=== PATIENT | female | born 1955 | race Caucasian/White ===

== ENCOUNTER 2020-06-13 18:44 | Emergency (ER) | payer MEDICARE, MEDICAID ==
[~2020-06-13] VITALS: Ht 172.7 cm; Wt 81.8 kg
[~2020-06-13 18:44] MED LIST: LOSA100T57 PO; NITR0.4T51 SL; ROSU40TA PO; SPIR25TA PO; TICA90TA PO
[2020-06-13] MEDS ORDERED: nitroGLYCERIN 0.4mg SUBLingual tab SL PRN (18:55)
[2020-06-13 19:08] LABS: BASOPHILS # (AUTO) 0.1 X10'3 (0-0.2); BASOPHILS % (AUTO) 0.8 % (0-1); EOSINOPHILS # (AUTO) 0.2 X10'3 (0-0.9); EOSINOPHILS % (AUTO) 1.5 % (0-6); HEMATOCRIT 44.9 % (35.0-45.0); HEMOGLOBIN 14.8 g/dl (12.0-16.0); LYMPHOCYTES # (AUTO) 3.1 X10'3 (1.1-4.8); LYMPHOCYTES % (AUTO) 21.7 % (21-51); MEAN CORPUSCULAR HEMOGLOBIN 30.3 PG (27.0-31.0); MEAN CORPUSCULAR HGB CONC 32.9 g/dL (33.0-36.5); MEAN CORPUSCULAR VOLUME 92.3 FL (78-98); MEAN PLATELET VOLUME 9.5 FL (7.4-10.4); MONOCYTES % (AUTO) 6.9 % (2-12); NEUTROPHILS % (AUTO) 69.1 % (42-75); PLATELET COUNT 212 X10'3 (140-440); RED BLOOD COUNT 4.87 X10'6 (4.20-5.60); RED CELL DISTRIBUTION WIDTH 14.2 % (11.5-14.5); WHITE BLOOD COUNT 14.5 X10'3 (4.5-11.0)
[2020-06-13 19:19] LABS: D-DIMER 0.23 MG/L FEU (0-0.50)
[2020-06-13 19:22] LABS: ALANINE AMINOTRANSFERASE 19 U/L (12-78); ALBUMIN 3.6 G/DL (3.4-5.0); ALBUMIN/GLOBULIN RATIO 1.1 (1.1-1.5); ALKALINE PHOSPHATASE 88 IU/L (46-116); ANION GAP 9 (8-16); ASPARTATE AMINO TRANSFERASE 18 U/L (10-37); BILIRUBIN,TOTAL 0.3 MG/DL (0.1-1.0); BLOOD UREA NITROGEN 12 MG/DL (7-18); BUN/CREATININE RATIO 13.3 (6.6-38.0); CALCIUM 8.9 MG/DL (8.5-10.1); CHLORIDE 106 MMOL/L (99-107); GLUCOSE 109 MG/DL (70-104); POTASSIUM 3.5 MMOL/L (3.5-5.1); SODIUM 144 MMOL/L (135-145); TOTAL CARBON DIOXIDE 29.5 MMOL/L (24-32); TOTAL PROTEIN 6.8 G/DL (6.4-8.2); eGFR 63 ML/MIN
--- NOTE | 2020-06-13 21:42 | NUR ---
Pt HR 48-50. Denies chest pain or dizziness. Provider notified of bradycardia.
[2020-06-13 23:49] VITALS: BP 154/76
== END 2020-06-13 23:50 | disposition home or self-care (01) ==
LOC: ER 18:45
DX: I20.9 Angina pectoris, unspecified (principal); E78.00 Pure hypercholesterolemia, unspecified; I10 Essential (primary) hypertension; I25.2 Old myocardial infarction; Z79.899 Other long term (current) drug therapy
CPT/HCPCS: 36415; 71045; 80053; 83880; 84484; 85025; 85379; 93005; 99285

== ENCOUNTER 2025-03-15 21:56 | Inpatient (IN) | payer BC, MEDICAID ==
[~2025-03-15] VITALS: Ht 172.7 cm; Wt 69.4 kg
[~2025-03-15 21:56] MED LIST changes: +EZET10TA48 PO; +GABA-530 PO; -LOSA100T57 PO; +LOSA100T58 PO; -NITR0.4T51 SL; -SPIR25TA PO; -TICA90TA PO; +TICA90TA2 PO
--- NOTE | 2025-03-15 22:14 | ELECTROCARDIOGRAPH REPORT ---
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 Alice Leal Measurements Intervals [place] Rate: 44 P: 0 WV: 153 QRS: 49 QRSD: 96 T: 38 QT: 421 QTc: 360 Interpretive Statements Sinus bradycardia Multiple premature complexes, vent & supraven Borderline low voltage, extremity leads Minimal ST depression, lateral leads Baseline wander in lead(s) V6 Electronically Signed On 03-16-2025 4:14:[address] Alice Leal Please click the below link to view image of tracing.
[2025-03-15] MEDS ORDERED: heparin 25,000 UNIT/250ml bag 250 ML IV PRN ×2 (22:15→23:10)
[2025-03-15] MEDS: HEPARIN DRIP INITAL BOLUS --- DO NOT GIVE/ORDER MC ONE (22:15)
--- NOTE | 2025-03-15 22:16 | Physician Documentation ---
History of Present Illness ~ Chief Complaint: Chest Pain Stated Complaint: XFER Time Seen by MD: 22:02 OK to notify your PCP?: Yes Primary Medical Doctor: Yoan Cuenca Source: patient, RN/MD, EMS, RN notes reviewed, EMS notes reviewed, old records Mode of Arrival: EMS Exam Limitations: no limitations HPI This patient is a 69-year-old female transferred from [facility] for chest pain. Patient with history of [place] a sense, and AFib comes in for crushing substernal chest pain that started just prior to arrival to Health system. Patient describes her pain as a crushing were a substernal chest pain. She reports this chest pain rule markedly improved after given nitro at home and by EMS in route. She does report associated shortness of breath with this chest pain, however states that it resolved with the chest pain once nitro was given. 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 Cuenca however she says that he fired her since she missed three previous appointments. Patient denies any associated symptoms at this time. Patient denies any alleviating or exacerbating factors. Medication Reconciliation Allergies: Coded Allergies: No Known Allergies (Unverified , 12/17/14) Scheduled Ezetimibe (Ezetimibe), 1 TAB PO DAILY, (Reported) Losartan Potassium (Losartan Potassium), 100 MG PO DAILY, (Reported) Rosuvastatin Calcium* (Crestor*), 1 TAB PO DAILY, (Reported) Ticagrelor (Brilinta), 1 TAB PO BID, (Reported) Past Medical History Past Medical History: No Pertinent History, Coronary Artery Disease, High Cholesterol, Hypertension, Myocardial Infarction Past Surgical History: noncontributory, other Other Past Surgical History: stents Patient History: (CHF) Congestive heart failure GRANDFATHER OR GRANDMOTHER, Name: maternal gpa, , Age: 58, Cause: CHF (congestive heart failure) ([place]) Myocardial infarction MOTHER, , Age: 60, Cause: AMI (acute myocardial infarction) GRANDFATHER OR GRANDMOTHER, Name: maternal gma, , Age: 52, Cause: AMI (acute myocardial infarction) Smoking Status: Unknown if ever smoked Alcohol Use: None Drug Use: none Lives In: Home Review of Systems All Other Systems at this time: Reviewed and Negative Physical Exam Vital Signs: Temperature: 98.4, Source: Oral, Heart Rate: 52, Respiratory Rate: 11, BP: 172/80, Pulse Oximetry: 98, Weight: 69.400 Physical Exam General: The patient is well developed, well nourished, nontoxic appearing and is in no acute distress. Skin: [place], warm and dry with no rashes. HEENT: Head was normocephalic and atraumatic. Eyes - pupils equal, round, reactive to light and accommodation. Extraocular movements were intact. Conjunctivae were nonicteric. Ears - bilateral tympanic membranes were normal. The mouth and oropharynx were clear with moist mucous membranes. There were no pharyngeal exudates or erythema. Neck: Supple and nontender. There was no jugular venous distention, lymphadenopathy, thyromegaly or masses. Chest: Clear to auscultation bilaterally without wheezes, rales or rhonchi. No accessory muscle use. No dullness to percussion. Heart: Regularly irregular. 4/6 systolic injection murmur. Otherwise S1, S2. Palpation of the chest wall was normal. No rubs or thrills. Abdomen: Soft, nontender and nondistended. Positive bowel sounds. No guarding or rebound. No hepatosplenomegaly or palpable masses. Extremities: No cyanosis, clubbing or edema. The patient moves all extremities. Pulses were equal and symmetric. Neurologic: Cranial nerves II-XII were intact. Sensation was intact to light touch throughout. Motor strength was 5/5 in all four extremities. Deep tendon reflexes were intact in both upper and lower extremities. Psychologic: The patient was oriented to person, place and time. The patient demonstrated appropriate judgement and insight. Progress Results/Orders Reviewed/noted all lab results: Yes Results/Orders Orders - OWEN STARR MD Monitor (03/15/25 22:11) Oxygen (03/15/25 22:11) Saline Lock (03/15/25 22:11) Electrocardiogram (03/15/25 22:11) Page Hospitalist (03/15/25 22:21) Fill Out Med Reconciliation (03/15/25 22:21) Completed Orders - OWEN STARR MD Cbc/Diff (03/15/25 22:11) MG (03/15/25 22:11) Pt Inr (03/15/25 22:11) PTT (03/15/25 22:11) PBNP (03/15/25 22:11) Normal Saline 1000ml (0.9% Sodium Chlori (03/15/25 22:15) Electrocardiogram (03/15/25 22:11) BMP (03/15/25 22:11) Hs Troponin I W Calculations (03/15/25 22:11) Hs Troponin I W Calculations (03/16/25 01:11) Heparin 25,000 Unit/250ml Bag (Heparin 2 (03/15/25 22:15) No Initial Heparin Drip Bolus (No Initia (03/15/25 22:15) Hgb A1c (03/15/25 22:20) PHOS (03/15/25 22:20) Laboratory Tests Test 03/15/25 22:20 White Blood Count 13.1 H Red Blood Count 4.72 Hemoglobin 14.3 Hematocrit 42.3 Mean Corpuscular Volume 89.6 Mean Corpuscular Hemoglobin 30.2 Mean Corpuscular Hemoglobin Concent 33.7 Red Cell Distribution Width 14.3 Platelet Count 190 Mean Platelet Volume 9.0 Neutrophils (%) (Auto) 57.5 Lymphocytes (%) (Auto) 33.0 Monocytes (%) (Auto) 6.2 Eosinophils (%) (Auto) 2.2 Basophils (%) (Auto) 1.1 H Neutrophils # (Auto) 7.6 Lymphocytes # (Auto) 4.3 Monocytes # (Auto) 0.8 Eosinophils # (Auto) 0.3 Basophils # (Auto) 0.1 CBC Comment Prothrombin Time 10.7 INR International Normalized Ratio 1.0 Activated Partial Thromboplast Time 44 H Coagulation Comments Sodium Level 139 Potassium Level 3.4 L Chloride Level 106 Carbon Dioxide Level 27.6 Anion Gap 5 L Blood Urea Nitrogen 9 Creatinine 0.64 Estimated GFR/1.73 m2 > 90 BUN/Creatinine Ratio 14.1 Glucose Level 90 Hemoglobin A1c 5.9 Calcium Level 8.9 Phosphorus Level 3.4 Magnesium Level 2.1 Troponin I High Sensitivity 1297 *H Pro-B-Type Natriuretic Peptide 1189 H Albumin 3.6 Chemistry Comments EKG/XRAY/CT/US/VASC/MRI EKG : Intepreting Monitor?: Yes Additional Comment [facility] [address], [facility] [address] ELECTROCARDIOGRAM Patient: VADIM CABRAL Medical Record: [id number] [facility] : 1955, Age: 69Sex: F Location: [facility] Patient Status: ADM IN Service Date/Time: Ordering Physician: WILMER BLACKWELL Exam Name: EKG/ACS Related Symptoms Technologist: [facility] Test Date: 2025-03-15 Test Time: 23:33:53 Pat Name: VADIM CABRAL Department: [facility]- Patient ID: [facility]-[id number] Room: [place] [address] Gender: F Gas Controller: : 1955 Requested By: WILMER BLACKWELL Order Number: [id number] Reading MD: Dr. Owne Starr Measurements Intervals [place] Rate: 42 P: 47 VT: 157 QRS: 50 QRSD: 95 T: 20 QT: 464 QTc: 388 Interpretive Statements Sinus bradycardia Paired ventricular premature complexes Baseline wander in lead(s) V3 Electronically Signed On 03-16-2025 4:14:[address] Owen Starr Please click the below link to view image of tracing. EKG Date and Time:03/15/252332 Electronically Signed by: OWEN STARR MD Date and Time: 03/16/25 5959 NO PRIMARY CARE PROVIDER~ cc: ~ Departure Referrals: NO PRIMARY CARE PROVIDER (PCP) Signature Scribe Signature: Scribed for Owen Starr MD by Monique Flores . 03/15/25 23:00 Attestation: The note accurately reflects work and decisions made by me.Owen Starr MD 03/15/25 22:16 OWEN STARR MD Mar 15, 2025 22:16
[2025-03-15 22:25] LABS: MEAN PLATELET VOLUME 9.0 FL (7.4-10.4); RED CELL DISTRIBUTION WIDTH 14.3 % (11.5-14.5)
[2025-03-15 22:44] LABS: APTT 44 SECONDS (22-32); INR 1.0 INR
[2025-03-15 22:54] LABS: CREATININE 0.64 MG/DL (0.40-0.90); PRO BRAIN NATRIURETIC PEPTIDE 1189 PG/ML (0-125); TOTAL CARBON DIOXIDE 27.6 MMOL/L (24-32); eCRCL 81 ML/MIN; eGFR > 90 ML/MIN
[2025-03-15] MEDS ORDERED: potassium Cl 20 mEq SR tablet PO PRN (23:10)
[2025-03-15] MEDS ORDERED: magnesium sulf-water 4G/100mL 100 ML IV PRN (23:10)
[2025-03-15] MEDS ORDERED: magnesium hydroxide 30ml (MOM) UD suspension PO PRN (23:10)
[2025-03-15] MEDS ORDERED: mag hydrox/Alum hydrox/simeth 30ml oral suspension PO PRN (23:10)
[2025-03-15] MEDS ORDERED: potassium Cl 40MEQ/1/2NS 520ml 520 ML IV PRN (23:10)
[2025-03-15] MEDS ORDERED: magnesium Cl slow-release 64mg tablet PO PRN (23:10)
[2025-03-15] MEDS ORDERED: ondansetron/PF 4mg/2ml inj IV PRN (23:10)
[2025-03-15] MEDS ORDERED: magnesium sulf-water 2g/50mL 50 ML IV PRN (23:10)
--- NOTE | 2025-03-15 23:35 | ELECTROCARDIOGRAPH REPORT ---
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 Owen Starr Measurements Intervals [place] Rate: 42 P: 47 ID: [id number] QRS: 50 QRSD: 95 T: 20 QT: 464 QTc: 388 Interpretive Statements Sinus bradycardia Paired ventricular premature complexes Baseline wander in lead(s) V3 Electronically Signed On 03-16-2025 4:14:[address] Owen Starr Please click the below link to view image of tracing.
[2025-03-15 23:36] LABS: LEUKOCYTE ESTERASE ,URINE TRACE (Neg); NITRITES, URINE POSITIVE (Neg); OCCULT BLOOD,URINE TRACE-INTACT (Neg)
[2025-03-15 23:37] LABS: UA COLLECTION TYPE NON-SPECIFIED
[2025-03-15 23:41] LABS: SQUAMOUS EPITHELIAL CELL,UR MODERATE /LPF (FEW)
[2025-03-16] VITALS (8 sets, daily range): BP systolic 126–166; BP diastolic 58–82; PULSE 51–68; RESP 12–21; TEMP 97.4–99; O2SAT 95–98
--- NOTE | 2025-03-16 | HISTORY AND PHYSICAL-Residence ---
History & Physical Providers to CC Resident Creating Document: WILMER LARA RES ~ History of Present Illness Primary Medical Doctor: [facility] Reason for Admit\Complaint: Chest pain History of Present Illness 69-year-old female patient with past medical history of CAD status post PTCA x [address] Cuenca and Dr. Curry but was lost to follow up due to personal challenges presented to the ER as a transfer from [facility] for higher level care management of NSTEMI. Over the last two months, she has been suffering with on and off chest pain that occurs at rest. Chest pain is usually 2-3/10 and is self-limited without requiring any medications. Today evening at around 4:00 p.m., the patient developed worsening of chest pain reaching up to 5 to 6/10 on the scale, characteristic of pain was substernal crushing with radiation down to the left armpit. Pain was not associated with dizziness, diaphoresis, shortness of breath, palpitations, presyncopal or syncopal episodes. Pain was not similar to a prior episodes but none of her prior two episodes were similar to each other either. Nitroglycerin administered by EMS on site and at [facility] relieved the pain. 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 However, she is compliant with all of her medications. At [facility], the patient was treated with nitroglycerin and was started on the heparin drip after her 1st troponin was elevated, and was transferred here. During my exam in the ER, she was found to be bradycardic with heart rate dropping down as low as 49 beats per minute. No EKG was presents from [facility] but as per records, heart rate had remained about 50s in the outside facility as well. Patient is asymptomatic even on ambulation. Of note, the patient also reports that she lost about 75 lb since July which she states is secondary to reducing portion sizes. She also reports no appetite and loss of taste. Allergies: Coded Allergies: No Known Allergies (Unverified , 12/17/14) Home Medications Home Medications Active Reported Gabapentin 100 Mg Capsule 1 Cap PO DAILY 30 Days Ezetimibe 10 Mg Tablet 1 Tab PO DAILY Brilinta (Ticagrelor) 90 Mg Tablet 1 Tab PO BID Crestor* (Rosuvastatin Calcium) 40 Mg Tablet 1 Tab PO DAILY Losartan Potassium 100 Mg Tablet 100 Mg PO DAILY Past Medical History Past Medical History Hypertension, hyperlipidemia, CAD status post PTCA x2, chronic atrial fibrillation Past Surgical History Surgical History Comment CAD status post PTCA Hiatal hernia Appendectomy Tonsillectomy Right total hip arthroplasty Family History Family History: (CHF) Congestive heart failure GRANDFATHER OR GRANDMOTHER, Name: maternal gpa, , Age: 58, Cause: CHF (congestive heart failure) ([place]) Myocardial infarction MOTHER, , Age: 60, Cause: AMI (acute myocardial infarction) GRANDFATHER OR GRANDMOTHER, Name: maternal gma, , Age: 52, Cause: AMI (acute myocardial infarction) Past Social History Social History Comment Smokes 5-8 cigarettes per day. Started at the age of 53 Denies any alcohol use. Denies any other illicit drug abuse. Independent. Ambulates without any assistive devices. Lives at home with the . Alcohol Use: None Drug Use: None Lives In: Home ROS ROS As stated above in the HPI, otherwise all systems are reviewed and negative. Exam Vitals: Vital Signs Date Time Temp Pulse Resp B/P (MAP) Pulse Ox O2 Delivery O2 Flow Rate FiO2 03/15/25 23:34 50 16 143/96 (112) 98 0 03/15/25 22:05 98.4 General: General: Awake and Alert, no acute distress. HEENT: Conjunctiva pink, Sclera clear, Mucus Membranes moist. Resp: Unlabored. Lungs clear to auscultation bilaterally. Heart: Regular Rate and rhythm, normal S1 and S2, pansystolic pulmonic murmur grade 3/5 Abdomen: Soft and non tender no organomegaly Extremities: No cyanosis,clubbing or edema. GROUP PRODUCT MANAGER: Oriented x4. No motor or sensory deficits noted. No cranial nerve deficits. Skin: Warm and Dry. Diagnostic Data Last Recorded Lab Results: 03/16/25 0320 03/16/25 0320 Diagnostic Data: Laboratory Tests Test 03/15/25 22:20 Prothrombin Time 10.7 SECONDS (9.0-12.0) INR International Normalized Ratio 1.0 INR Activated Partial Thromboplast Time 44 SECONDS (22-32) H Coagulation Comments Counseling Services Smoking & Tobacco Cessation: 3-10 Minutes Advance Care Planning Advanced Care plannin - 30 Minutes Additional Plan NSTEMI: Prior CAD status post PTCA Hemodynamically stable Troponins uptrending EKG: Irregularly irregular, indiscernible P waves, occasional PAC's and PVCs, sinus bradycardic. No significant ST or T-wave changes notable One dose aspirin. Home medication of statin taken. PRN nitroglycerin. Continue heparin drip Beta blockers contraindicated at this time Restart home medication of Brilinta after cardiology evaluation and if no procedural evaluation planned Follow echocardiogram for wall motion abnormalities Consult cardiology in a.m. Place on bus monitor; close monitoring for hemodynamic stability Asymptomatic bradycardia: EKG difficult to interpret but reveals irregular R-R intervals Continous telemetry reveals sinus bradycardia with occassional PAC's and PVC's Consulted Dr. Digna Cuenca; on-call flash welder Reviewed medications, no metoprolol received. Place on telemetry; we will closely monitor overnight Place pacer pads If patient becomes hemodynamically unstable, we will administer atropine Hypertension: Blood pressure at [facility]: 210/93. Likely anxiety induced Blood pressure well-controlled now of the nitro. Currently ranging between 150- 160 SBP Close monitoring, goal <140/80 Do not give beta blockers/CCB's to control blood pressure We will control blood pressure with nitro/hydralazine/Isaiah or arbs Restart home medications of losartan after reconciliation Uncomplicated UTI: Mild leukocytosis IV Rocephin- day one Follow up procalcitonin and blood cultures Chronic Atrial fibrillation: Currently bradycardic; underlying rhythm AFib Avoid beta blockers/CCB's CHADS-VASc score: 3; no home anticoagulation Currently anticoagulated with heparin drip Would require DOAC when heparin is stopped Hyperlipidemia: Follow lipid panel Continue home medication of ezetimibe after reconciliation Significant weight loss: Lost 75 lb over the last seven months Current smoker but less than 15 pack years Suspect eating disorder as a possible etiology as well Outpatient evaluation Lines: PIV Code status: Full code DVT prophylaxis: Heparin drip Diet: JAMIE Lara PGY3, Internal medicine resident Date of Service: Mar 16, 2025 Billing Provider: ERNESTINA SOL MD Common Visit Codes: [id number] INP/OBS CARE (HIGH) Assessment/Plan Assessment Evaluated the patient with the help of residents. Discussed the case with them. Reviewed notes by Dr. Lara and agree with his assessments and plans. I also reviewed the records myself. This included labs, radiology, and notes from other providers. Will continue th e present treatment plans. WILMER LARA, RES Mar 16, 2025 00:00 ERNESTINA SOL MD Mar 16, 2025 06:07
[2025-03-16] MEDS ORDERED: heparin 25,000 UNIT/250ml bag 250 ML IV PRN ×3 (00:10→12:30)
[2025-03-16] MEDS: normal saline 1000ml 1,000 ML IV ONE (00:21)
[2025-03-16] MEDS: heparin 25,000 UNIT/250ml bag 250 ML IV PRN (00:35)
[2025-03-16] MEDS: potassium Cl 20 mEq SR tablet PO PRN (01:35)
[2025-03-16 01:38] LABS: PHOSPHORUS 3.4 MG/DL (2.3-4.5)
[2025-03-16 03:39] LABS: MEAN PLATELET VOLUME 9.3 FL (7.4-10.4); RED CELL DISTRIBUTION WIDTH 14.2 % (11.5-14.5)
[2025-03-16 03:57] LABS: CHOL/HDL RATIO 2.9 (0.00-4.99); CREATININE 0.52 MG/DL (0.40-0.90); LDL CHOLESTEROL 71 MG/DL (50-100); TOTAL CARBON DIOXIDE 28.3 MMOL/L (24-32); eCRCL 100 ML/MIN; eGFR > 90 ML/MIN
[2025-03-16] MEDS: heparin 10,000 units/1 ML INJ IV PRN (04:39)
--- NOTE | 2025-03-16 05:24 | ELECTROCARDIOGRAPH REPORT ---
[facility] Test Date: 2025-03-16 Test Time: 05:20:40 Pat Name: VADIM CABRAL Department: 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 LOTUS Wan Measurements Intervals [place] Rate: 68 P: 0 VA: 0 QRS: 49 QRSD: 98 T: 21 QT: 495 QTc: 527 Interpretive Statements Sinus bradycardia PVCs, nonspecific ST-T changes Electronically Signed On 03-16-2025 9:37:[address] LOTUS Wan Please click the below link to view image of tracing.
[2025-03-16] MEDS ORDERED: K and/or MAG REPLACEMENT MC SCH (08:00)
[2025-03-16] MEDS: docusate sod 100mg capsule PO SCH (08:00)
[2025-03-16] MEDS: CefTRIAXone/D5W-Rocephin 1gm 50 ML IV SCH (09:29)
--- NOTE | 2025-03-16 09:35 | PROGRESS NOTE ---
Daily Progress Note Providers to CC ~ no new complaint today, resting comfortably in the bed Central Line/PICC still needed: No Cutler-Non Protocol Cutler Indications Met/Not Met: F/C Indications Not Met Antibiotic Timeout Antibiotic Ordered?: Yes MRSA Education MRSA Education Provided to pt: Yes Subjective As above Objective Vital Signs Date Time Temp Pulse Resp B/P (MAP) Pulse Ox O2 Delivery O2 Flow Rate FiO2 03/16/25 06:00 50 03/16/25 02:00 98.5 19 163/82 (109) 03/16/25 02:00 97 Room Air 0.0 Vital signs, stable ,afebrile. Pulse Oximetry reflects adequate oxygenation. General: well developed, well nourished. Awake , alert, and oriented x4, resting comfortably in the bed, in no acute distress . Skin: Warm, dry, no pallor, no rash or petechiae. HEENT: Atraumatic, normocephalic, EOMI, anicteric sclera B; pink conjunctiva; PERRLA, normal oropharynx, moist oral and nasal mucosa. Tympanic membrane , nose , throat clear. Neck: Trachea midline. Supple, full range of motion, no JVD, bruit , hepatojugular reflex , lymphadenopathy or masses, or other lesions Cardiac: Regular rhythm, regular rate no murmurs, rubs, or gallops. Normal S1 and S2, no S3 noticed. PMI is normal. Respiratory: Equal breath sounds bilaterally, no tachypnea; lungs clear to auscultation bilaterally, no wheezing ,rub or rales, or crackles. Chest wall is symmetric and without deformity. No signs of trauma. Chest wall is nontender. No signs of respiratory distress. Resonance is normal upon percussion bilaterally. Gastrointestinal: Abdomen symmetric, non-distended, soft, non-tender, normal bowel sounds x4 quadrant, normoactive, no hepatosplenomegaly , no masses , no bruit, no flank pain bilaterally. No voluntary guarding, rebound, or rigidity. No tenderness to percussion. No pulsatile masses. Equal femoral pulses. No Oneill's sign or McBurney point tenderness. Back; no CVA tenderness bilaterally, no deformities. Neck and back are without deformity as well. No tenderness noted on palpation of the spinous processes. Spinous processes are midline. Cervical, thoracic, and lumbar paraspinal muscles are not tender and are without spasm. Musculoskeletal: Extremities, normal range of motion, non-tender, muscle strength 5/5 x 4. Negative Homans signs bilaterally on lower extremity. Distal pulses full symmetrical, no clubbing, cyanosis , edema. Neurological: Speech is clear, alert, and oriented x 4. No motor or sensory deficit, deep tendon reflexes normal, cerebellar intact. Cranial nerves II-XII intact. Psych: Alert and or appropriate, normal affect. Vascular: Good distal pulses, which are equal x4; capillary refill less than 2 seconds. Lymphatic, no lymphadenopathy. Result Diagram: 03/16/25 0320 03/16/25 0320 Coagulation Studies Laboratory Tests Test 03/15/25 22:20 03/16/25 03:20 Prothrombin Time 10.7 SECONDS (9.0-12.0) INR International Normalized Ratio 1.0 INR Activated Partial Thromboplast Time 44 SECONDS (22-32) H APTT (Heparin Protocol) 29 SECONDS (45-60) L Coagulation Comments Problem\Assessment\Plan Problems/Diagnosis: (1) NSTEMI (non-ST elevated myocardial infarction) Assessment/ Plan NSTEMI: Prior CAD status post PTCA Hemodynamically stable Troponins uptrending EKG: Irregularly irregular, indiscernible P waves, occasional PAC's and PVCs, sinus bradycardic. No significant ST or T-wave changes notable One dose aspirin. Home medication of statin taken. PRN nitroglycerin. Continue heparin drip Beta blockers contraindicated at this time Restart home medication of Brilinta after cardiology evaluation and if no procedural evaluation planned Follow echocardiogram for wall motion abnormalities Consult cardiology completed, scheduled for cardiac catheterization possibly today Place on child day care provider; close monitoring for hemodynamic stability Asymptomatic bradycardia: EKG difficult to interpret but reveals irregular R-R intervals Continous telemetry reveals sinus bradycardia with occassional PAC's and PVC's Consulted Dr. Digna Cuenca; on-call spring coiler Reviewed medications, no metoprolol received. Place on telemetry; we will closely monitor overnight Place pacer pads If patient becomes hemodynamically unstable, we will administer atropine Hypertension: Blood pressure at [facility]: 210/93. Likely anxiety induced Blood pressure well-controlled now of the nitro. Currently ranging between 150- 160 SBP Close monitoring, goal <140/80 Do not give beta blockers/CCB's to control blood pressure We will control blood pressure with nitro/hydralazine/Isaiah or arbs Restart home medications of losartan after reconciliation Uncomplicated UTI: Mild leukocytosis IV Rocephin- day one Follow up procalcitonin and blood cultures Chronic Atrial fibrillation: Currently bradycardic; underlying rhythm AFib Avoid beta blockers/CCB's CHADS-VASc score: 3; no home anticoagulation Currently anticoagulated with heparin drip Would require DOAC when heparin is stopped Hyperlipidemia: Follow lipid panel Continue home medication of ezetimibe after reconciliation Significant weight loss: Lost 75 lb over the last seven months Current smoker but less than 15 pack years Suspect eating disorder as a possible etiology as well Outpatient evaluation Lines: PIV Code status: Full code DVT prophylaxis: Heparin drip Sepsis Screening Reassessment Date: Mar 16, 2025 Date of Service: Mar 16, 2025 Billing Provider: MONSE MG MD Common Visit Codes: [id number] INP/OBS CARE(HIGH) MONSE MG MD Mar 16, 2025 09:35
[2025-03-16] MEDS: MESSAGE TO NURSING IV ONE ×2 (10:45→17:34)
--- NOTE | 2025-03-16 11:20 | CONSULTATION REPORT ---
History of Present Illness Providers to CC CC: ROLF CUENCA MD ~ Reason for Admit\Admit Dx: Cardiology consultation Refering MD: [facility] History of Present Illness This is a 69-year-old female who presented secondary to chest pain. She has a history of hypertension, hyperlipidemia, coronary artery disease, [id number]-lmpafldc carotid artery stenosis. There is documented history of atrial fibrillation in the chart from [facility] however patient does not take oral anticoagulation and has no known history. He continues to smoke a half pack per day but reports she quit five days ago. She presented for substernal chest pain that was nonradiating described as stabbing with associated shortness for breath and nausea. No diaphoresis. States she was doing housework when the pain started. Also appreciate symptoms of orthopnea for the past 6-8 months and requiring an extra pillow to sleep. Otherwise, denies dyspnea on exertion. No dizziness, lightheadedness or syncope. She was found to have NSTEMI. EKG was sinus bradycardia and PVCs/PACs. No acute ST changes. Cardiology consultation was requested with the on-call surgeon partner, Dr. Lindsay Cuenca. Allergies: Coded Allergies: No Known Allergies (Unverified , 12/17/14) Home Medications Home Medications Active Reported Ezetimibe 10 Mg Tablet 1 Tab PO DAILY Brilinta (Ticagrelor) 90 Mg Tablet 1 Tab PO BID Crestor* (Rosuvastatin Calcium) 40 Mg Tablet 1 Tab PO DAILY Losartan Potassium 100 Mg Tablet 100 Mg PO DAILY Past Medical History Medical History Comment Coronary artery disease --angiogram 2015 had a patent RCA stent and other nonobstructive coronary artery disease --angiogram January 2023 underwent PCI of the mid left circumflex. Moderate disease of the mid LAD by IFR --angiogram April 2023: Patent stents. Continued moderate disease of the LAD Hypertension Hyperlipidemia Carotid artery stenosis Tobacco use disorder Past Surgical History Surgical History Comment Hernia repair Hip surgery Appendectomy Tonsillectomy PCI as above Past Family History Family History: (CHF) Congestive heart failure GRANDFATHER OR GRANDMOTHER, Name: maternal gpa, , Age: 58, Cause: CHF (congestive heart failure) (AL) Myocardial infarction MOTHER, , Age: 60, Cause: AMI (acute myocardial infarction) GRANDFATHER OR GRANDMOTHER, Name: maternal gma, , Age: 52, Cause: AMI (acute myocardial infarction) Past Social History Social History Comment Tobacco use. States smokes less than 1/2 pack per day and quit smoking five days ago. Rare alcohol use. No recreational drugs. Lives with who is dependent on her for care. Physical Exam Last Vital Signs Recorded: RN Vital Signs have been reviewed: Yes, Temperature: 98.5, Source: Oral, Heart Rate: 52, Respiratory Rate: 19, BP: 163/82, Pulse Oximetry: 97, Weight: 69.400 Physical Exam General: Awake, alert, oriented. No apparent distress Neck: Supple. Normal range of motion. No JVD Respiratory: Lungs are clear to auscultation bilaterally. No respiratory distress. Chest: Normal shape and size. No accessory muscle use. Cardiovascular: Regular rate and rhythm. S1-S2. No murmur, gallop, rub. Gastrointestinal: Abdomen is soft. Nontender to palpation. Bowel sounds present. Extremities: No lower extremity edema, cyanosis or clubbing. Neurologic: Alert and oriented x4. Nonfocal Psychiatric: Normal mood and affect. Skin: Normal color. Warm and dry. Review of Systems ROS Patient complains of chest pain with associated shortness for breath and nausea. Furthermore has orthopnea. No dizziness, lightheadedness. No syncopal episodes. Reports 50 lb weight loss over the past few years. Otherwise, denies review of systems. Results Diagram Lab Result Diagram: 03/16/25 0320 03/16/25 0320 Assessment/Plan Additional Plan This is a 69-year-old female who presented with chest pain. The following is her problem list: NSTEMI History of coronary artery disease with previous PCI of the left circumflex and RCA --continue heparin drip --aspirin 81 mg daily --no beta-storm given bradycardia --high-intensity statin to keep LDL less than 55 --does not hurt she has been maintained on Brilinta since her previous AL in January 2023 --referral for cardiac rehab Recommend cardiac catheterization. Risks, benefits and alternatives were reviewed in detail with her. She had the opportunity to ask questions and wishes to proceed. She will be scheduled for this afternoon Bradycardia EKG shows sinus bradycardia with PACs and PVCs Monitor on telemetry. Outpatient event monitor Hypertension --continue home meds Hyperlipidemia --optimize statin to keep LDL less than [address] Lindsay Cuenca. In agreement with the above Supervising MD Supervising Physician: TRISTAN Lu NP Mar 16, 2025 11:20
[2025-03-16] MEDS ORDERED: LIDOcaine 1% (10mg/ml) 2ml vial ONE (15:10)
[2025-03-16] MEDS ORDERED: fentaNYL/PF 50MCG/1 ML 2ML syringe ONE (15:10)
[2025-03-16] MEDS ORDERED: verapamil 2.5 mg/ml inj IV ONE (15:10)
[2025-03-16] MEDS ORDERED: heparin 1,000unit/ml 10ml vial 10 ML ONE (15:11)
[2025-03-16] MEDS ORDERED: midazolam 1 mg/ML 2ml injection ONE (15:11)
[2025-03-16] MEDS ORDERED: nitroGLYCERIN 500mcg/5mL D5W 5 ML IV ONE (15:11)
[2025-03-16] MEDS ORDERED: LIDOcaine 1% 30ml preserv. free vial ONE (16:58)
[2025-03-16] MEDS ORDERED: HYDROcodone/acetaminophen 5mg/325mg tablet PO PRN (18:25)
[2025-03-16] MEDS ORDERED: HYDROcodone/acetaminophen 10/325mg tab PO PRN (18:25)
[2025-03-16] MEDS ORDERED: OXAZEpam 15mg capsule PO PRN (18:25)
[2025-03-16] MEDS ORDERED: ondansetron/PF 4mg/2ml inj IV PRN (18:25)
--- NOTE | 2025-03-16 18:42 | CARDIOLOGY REPORT ---
APPROVED REPORT EXAM: Comprehensive 2D, Doppler, and color-flow Echocardiogram. Patient Location: 3[address] Blood Pressure: 163/82 mmHg Heart Rate: 50 bpm Rhythm: WANDERING ATRIAL PACEMAKER Indications MYOCARDIAL INFARCTION ELEVATED PROBNP (1189) HS TROPONIN 1297, 2215, 2680 CAD, STENT X2 HYPERTENSION HYPERLIPIDEMIA ATRIAL FIBRILLATION 3/5 MURMUR [facility] Assessment Specialist: Sedrick Cuenca MD (consult) Previous echo: 02/07/23 [facility] (EF 55-60%, trace to mild MR, trace TR, trace PI) 2D Dimensions RVDd 3.8 cm LA Diam5.8 cm IVSd 1.1 (0.7-1.1cm) LVDd 5.3 cm PWd 1.1 (0.7-1.1cm) IVSs 1.4 (0.8-1.2cm) LVDs 3.4 (2.5-4.0cm) PWs 1.4 (0.8-1.2cm) LVOT Diameter 2.00 (1.8-2.4cm) LVEF(%) 65.5 (>50%) Ao Asc Diam.3.60 cmIVC 25.24 mm FS (%) 36.3 % SV 88.6 ml CO 3.5 L/min M-Mode Dimensions Left Atrium(MM) 4.69 (2.5-4.0cm) IVSd 0.77 (0.7-1.1cm) LVDd 5.38 (4.0-5.6cm) Aortic Root 2.71 (2.2-3.7cm) PWd 0.99 (0.7-1.1cm) Aortic Cusp Exc 1.17 (1.5-2.0cm) IVSs 1.50 cm MV EPSS 0.8 (<0.5cm) LVDs 3.84 (2.0-3.8cm) FS (%) 29 % PWs 1.43 cm ESV(Teich) 63.7 ml LVEF(%) 55 (>50%) Biplane 2D LA Volumes LA ESV Index 57.95 mL/m2 Aortic Valve AoV Peak Jared. 202.6 cm/s AoV VTI 48.5 cm AO Peak GR. 16.4 mmHg AO Mean GR. 9 mmHg LVOT VTI 32.70 cm LVOT Peak Jared. 126.9 cm/s SHRUTHI(VTI)/BSA 2.11 cm2/m2 SHRUTHI (VTI) 2.11 cm2 Mitral Valve MV Peak Gr. 5 mmHg MV PHT 56 ms MVA (PHT) 3.93 cm2 MV QCrw768.6 cm/s Tricuspid Valve TR P. Velocity 234 cm/s RAP ESTIMATE 10 mmHg TR Peak Gr. 22 mmHg RVSP 32 mmHg LEFT VENTRICLE Normal LV size and wall thickness. Overall systolic function is normal. LVEF is 60-65%. RIGHT VENTRICLE RV is mildly dilated with normal systolic function. ATRIA LA is severely dilated. RA appears mildly dilated. AORTIC VALVE Trileaflet AV appears mildly sclerotic without stenosis. Trace insufficiency. MITRAL VALVE Mild MV annular calcification without stenosis. Trace regurgitation. TRICUSPID VALVE TV appears structurally normal with trace regurgitation. PULMONIC VALVE Normal PV without stenosis, physiologic insufficiency. GREAT VESSELS Aortic root is normal in size. Ascending aorta is normal in size. IVC is dilated and collapses less t moses 50% with inspiration. PERICARDIUM Normal pericardium. No effusion. Other Information Study Quality: Adequate Conclusion Normal LV size and wall thickness. Overall systolic function is normal. LVEF is 60-65%. RV is mildly dilated with normal systolic function. LA is severely dilated. RA appears mildly dilated. Trileaflet AV appears mildly sclerotic without stenosis. Trace insufficiency. Mild MV annular calcification without stenosis. Trace regurgitation. TV appears structurally normal with trace regurgitation. Normal pericardium. No effusion.
[2025-03-17 02:00] VITALS: BP 146/65; PULSE 54; RESP 16; TEMP 97.6; O2SAT 95
[2025-03-17 06:00] VITALS: BP 142/62; PULSE 54; RESP 18; TEMP 98.1; O2SAT 95
[2025-03-17 06:17] LABS: MEAN PLATELET VOLUME 9.4 FL (7.4-10.4); RED CELL DISTRIBUTION WIDTH 14.4 % (11.5-14.5)
[2025-03-17 06:29] LABS: CREATININE 0.51 MG/DL (0.40-0.90); TOTAL CARBON DIOXIDE 25.7 MMOL/L (24-32); eCRCL 102 ML/MIN; eGFR > 90 ML/MIN
[2025-03-17 08:00] VITALS: RESP 18; O2SAT 95
[2025-03-17 11:00] VITALS: BP 134/60; PULSE 60; RESP 18; TEMP 97; O2SAT 98
--- NOTE | 2025-03-17 19:04 | DISCHARGE SUMMARY ---
Discharge Summary Providers to CC No new complaint today, cleared by senior chemical process engineer to be discharged home ~ Discharge Summary Assessment Non ST-elevation DE History of coronary artery disease status post PTCA Asymptomatic bradycardia Hypertension poor control Uncomplicated UTI Chronic atrial fibrillation Hyperlipidemia Malnutrition, moderate Chronic tobacco abuse including currently Admission Diagnosis: NSTEMI Admission Diagnosis Comment: Non ST-elevation DE History of coronary artery disease status post PTCA Asymptomatic bradycardia Hypertension poor control Uncomplicated UTI Chronic atrial fibrillation Hyperlipidemia Malnutrition, moderate Chronic tobacco abuse including currently Hospital Course DATE OF ADMISSION: March 15, 2025 DATE OF DISCHARGE: March 17 2025 Discharge Diagnosis\Comment: Non ST-elevation DE History of coronary artery disease status post PTCA Asymptomatic bradycardia Hypertension poor control Uncomplicated UTI Chronic atrial fibrillation Hyperlipidemia Malnutrition, moderate Chronic tobacco abuse including currently Operations\Procedures: Cardiac catheterization Consultants: Molding Cutter Complications: Non Condition on DC: Stable Discharge Summary: 69-year-old female patient with past medical history of CAD status post PTCA x [address] Cuenca and Dr. Curry but was lost to follow up due to personal challenges presented to the ER as a transfer from [place] for higher level care management of NSTEMI. Over the last two months, she has been suffering with on and off chest pain that occurs at rest. Chest pain is usually 2-3/10 and is self-limited without requiring any medications. Today evening at around 4:00 p.m., the patient developed worsening of chest pain reaching up to 5 to 6/10 on the scale, characteristic of pain was substernal crushing with radiation down to the left armpit. Pain was not associated with dizziness, diaphoresis, shortness of breath, palpitations, presyncopal or syncopal episodes. Pain was not similar to a prior episodes but none of her prior two episodes were similar to each other either. Nitroglycerin administered by EMS on site and at [place] relieved the pain. 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 However, she is compliant with all of her medications. At [place], the patient was treated with nitroglycerin and was started on the heparin drip after her 1st troponin was elevated, and was transferred here. During my exam in the ER, she was found to be bradycardic with heart rate dropping down as low as 49 beats per minute. No EKG was presents from [place] but as per records, heart rate had remained about 50s in the outside facility as well. Patient is asymptomatic even on ambulation.Of note, the p atient also reports that she lost about 75 lb since July which she states is secondary to reducing portion sizes. She also reports no appetite and loss of taste. After admission patient was extensively evaluated treated, including cardiac catheterization, which revealed no lesions in the coronary artery, she was cleared for discharge today, she will be discharged in stable condition medication reconciled, follow-up PCP and Cardiology in two days, today on physical exam Vital signs, stable ,afebrile. Pulse Oximetry reflects adequate oxygenation. General: well developed, well nourished. Awake , alert, and oriented x4, resting comfortably in the bed, in no acute distress . Skin: Warm, dry, no pallor, no rash or petechiae. HEENT: Atraumatic, normocephalic, EOMI, anicteric sclera B; pink conjunctiva; PERRLA, normal oropharynx, moist oral and nasal mucosa. Tympanic membrane , nose , throat clear. Neck: Trachea midline. Supple, full range of motion, no JVD, bruit , hepatojugular reflex , lymphadenopathy or masses, or other lesions Cardiac: Regular rhythm, regular rate no murmurs, rubs, or gallops. Normal S1 and S2, no S3 noticed. PMI is normal. Respiratory: Equal breath sounds bilaterally, no tachypnea; lungs clear to auscultation bilaterally, no wheezing ,rub or rales, or crackles. Chest wall is symmetric and without deformity. No signs of trauma. Chest wall is nontender. No signs of respiratory distress. Resonance is normal upon percussion bilaterally. Gastrointestinal: Abdomen symmetric, non-distended, soft, non-tender, normal bowel sounds x4 quadrant, normoactive, no hepatosplenomegaly , no masses , no bruit, no flank pain bilaterally. No voluntary guarding, rebound, or rigidity. No tenderness to percussion. No pulsatile masses. Equal femoral pulses. No Oneill's sign or McBurney point tenderness. Back; no CVA tenderness bilaterally, no deformities. Neck and back are without deformity as well. No tenderness noted on palpation of the spinous processes. Spinous processes are midline. Cervical, thoracic, and lumbar paraspinal muscles are not tender and are without spasm. Musculoskeletal: Extremities, normal range of motion, non-tender, muscle strength 5/5 x 4. Negative Homans signs bilaterally on lower extremity. Distal pulses full symmetrical, no clubbing, cyanosis , edema. Neurological: Speech is clear, alert, and oriented x 4. No motor or sensory deficit, deep tendon reflexes normal, cerebellar intact. Cranial nerves II-XII intact. Psych: Alert and or appropriate, normal affect. Vascular: Good distal pulses, which are equal x4; capillary refill less than 2 seconds. Lymphatic, no lymphadenopathy. *Problems/Diagnosis: (1) NSTEMI (non-ST elevated myocardial infarction) Status: Acute Total Time Spent on D/C: > 30 Minutes Date of Service: Mar 17, 2025 Billing Provider: MONSE MG MD Common Visit Codes: 69672-WBI/OBS DISCH DAY >30min MONSE MG MD Mar 17, 2025 19:04
--- NOTE | 2025-03-20 21:44 | CARDIOLOGY REPORT ---
DATE OF SERVICE: 03/16/2025 DICTATING PHYSICIAN: Clement Cuenca MD CARDIAC CATHETERIZATION REPORT DATE OF STUDY: 03/16/2025. PROCEDURES: * Left heart catheterization. * Selective coronary angiography. * Left ventriculography. * Conscious sedation monitoring time for 15 minutes. INDICATION: Non-STEMI. PHYSICIAN: Clement Cuenca MD DESCRIPTION OF PROCEDURE: After informed consent was obtained, the patient was brought to the lab where she was prepped and draped in the usual sterile fashion. After adequate anesthesia was obtained using 1% lidocaine to the right groin, a 6-Ecuadorean sheath was inserted into the right femoral artery. Thereafter, using a pigtail catheter, the catheter was advanced over a J-wire into the left ventricle and left ventriculography performed. Thereafter, the pigtail was exchanged for JL4 and a JR4 catheter and selective coronary angiography performed. HEMODYNAMICS: For the patient's hemodynamic, please refer to the event log. Left ventricular end diastolic pressure is 17 mmHg. FINDINGS: All of the patient's coronary arteries are medium caliber vessels with mild luminal irregularities. No significant disease noted. Left ventriculography revealed the presence of apical ballooning suggestive of Takotsubo cardiomyopathy. IMPRESSION: * Mild luminal irregularities with no significant coronary artery disease by angiography. * Apical ballooning during left ventriculography suggestive of Takotsubo cardiomyopathy. * Left ventricular end diastolic pressure was 17 mmHg. Clement Cuenca MD TID: [id number] RECEIPT: [id number] DOYLE/LORRI
== END 2025-03-17 13:30 | disposition home or self-care (01) | DRG 281 ==
LOC: ER 21:56 → ED HOLD 23:18 → EDBEDREQ 03-16 00:18 → PCU 3S 03-16 01:11
PROVIDERS: ADMIT Internal Medicine Critical Care Medicine; ATTEND Family Medicine
PROC: 4A023N7 Measurement of Cardiac Sampling and Pressure, Left Heart, Percutaneous Approach (ICD-10-PCS; principal; 2025-03-16)
PROC: B2111ZZ Fluoroscopy of Multiple Coronary Arteries using Low Osmolar Contrast (ICD-10-PCS; 2025-03-16)
PROC: B2151ZZ Fluoroscopy of Left Heart using Low Osmolar Contrast (ICD-10-PCS; 2025-03-16)
DX: I21.4 Non-ST elevation (NSTEMI) myocardial infarction (principal); E44.0 Moderate protein-calorie malnutrition; I48.20 Chronic atrial fibrillation, unspecified; N39.0 Urinary tract infection, site not specified; F17.210 Nicotine dependence, cigarettes, uncomplicated; D72.829 Elevated white blood cell count, unspecified; I25.10 Atherosclerotic heart disease of native coronary artery without angina pectoris; I11.0 Hypertensive heart disease with heart failure; I50.9 Heart failure, unspecified; E78.00 Pure hypercholesterolemia, unspecified; Z96.641 Presence of right artificial hip joint; I49.3 Ventricular premature depolarization; Z90.49 Acquired absence of other specified parts of digestive tract; Z68.23 Body mass index [BMI] 23.0-23.9, adult
CPT/HCPCS: 36415; 80048; 80053; 80061; 81001; 83036; 83605; 83735; 83880; 84100; 84145; 84484; 85025; 85610; 85730; 87040; 87077; 87081; 87088; 87186; 93005; 93306; 93458; 97116; 97161; 97530; 99152; 99285; C1725; C1760; C1894; G0378; J0696; J1644; J2003; J2250; J3010; J3490; J7030; J7040; Q9967